=== PATIENT | male | born 1960 | race Caucasian/White ===

== ENCOUNTER → 2016-05-05 | Outpatient (CLI) | payer BC ==
[2016-05-05 08:26] LABS: ALBUMIN 4.4 g/dL (3.4-5.0); TOTAL PROTEIN 7.2 g/dL (6.4-8.5)
== END ==
LOC: LAB 07:55
PROVIDERS: ATTEND Family Medicine
DX: E78.1 Pure hyperglyceridemia (principal)
CPT/HCPCS: 36415; 80061; 80076